=== PATIENT | female | born 1940 | race Caucasian/White ===

== ENCOUNTER 2019-09-08 20:49 | Emergency (ER) | payer MEDICARE, OTHER, SELFPAY ==
[2019-09-08 20:50] VITALS: BP 158/84; PULSE 85; RESP 17; TEMP 36.7; O2SAT 96; BMI 27.1
--- NOTE | 2019-09-08 20:56 | ED_ITS ---
Entered by Poly Galloway, acting as scribe for HPI - General Adult General: Chief complaint: General Medical Stated complaint: possible infection to leg Time Seen by Provider: 09/08/19 20:52 Source: patient Mode of arrival: EMS Limitations: no limitations History of Present Illness: HPI narrative: 79 yo Female presents to ED from [facility] with complaint of possible infection post knee replacement. Pt states that she was sent to the ED by [facility] staff because there was no one at the [facility] that could draw blood cultures. Pt states that she had surgery on her knee on August 29 at [place] in [place]. Pt states that Dr. Amaro did her surgery. Pt states that she woke up with her knee feeling warm and she had a little bit of a fever. Pt states that she has been having issues since the surgery that she can't eat and can't swallow anything but liquids. MD complaint: Possible infection post surgery Onset (ago): hour(s) Location: left and lower extremity Radiation: non-radiation Severity scale (1-10): 7 Quality: constant Pain Consistency: constant Relieving factors: cold therapy Exacerbating factors: none Associated symptoms: Reports decreased appetite and fevers/chills; Deny chest pain, dyspnea, headache(s), nausea, rash, palpitations or vomiting Treatments prior to arrival: none Review of Systems General: Reports: 10 or more systems reviewed and unremarkable except in HPI and below Const: Reports: fever Eyes: Denies: change in vision, blurry vision or blind spots ENMT: Denies: throat pain, painful swallowing, hoarseness or mouth pain Card: Denies: chest pain, palpitations, irregular heart rhythm, edema or swelling of feet/ankles Resp: Denies: shortness of breath, productive cough or non-productive cough GI: Denies: abdominal pain, nausea or vomiting : Denies: flank pain, difficulty urinating, painful urination, urinary frequency or urinary urgency Musc: Reports: extremity pain; Denies: neck pain or back pain Skin/Breast: Denies: rash, itching or redness Neuro: Denies: headache, numbness in extremities or weakness in extremities PFSH ED PFSH: Statuses (acute, chronic, etc) shown below reflect problem list status as previously entered and may not be historically accurate Surgical History (Updated 09/08/19 @ 22:35 by Cliff Lisa) History of knee replacement (Acute) Social History Smoking and tobacco status: never smoked Physical Exam Const: COMMON NORMALS: no apparent distress, average body habitus, oriented x3, no limitations, healthy appearing, alert and well nourished HENMT: COMMON NORMALS: normocephalic, head/scalp atraumatic, hearing grossly normal bilaterally, external ears normal, EAC's normal, TM's normal bilaterally, external nose normal, nasal mucous membranes and turbinates normal, moist oral mucous membranes, oropharynx normal, dentition normal and gingiva normal HEAD & SCALP: normocephalic and atraumatic NOSE: external nose normal and nasal mucous membranes and turbinates normal EXTERNAL EAR: Yes external ears normal EXTERNAL AUDITORY CANAL: EAC's normal TYMPANIC MEMBRANE: TM's normal bilaterally Eye: COMMON NORMALS: PERRL, EOMs intact bilaterally, conjunctivae normal, no scleral icterus, no papilledema, normal visual [place] by confrontation and fundi normal bilaterally CONJUNCTIVA: Yes conjunctivae normal PUPIL: Yes PERRL DIRECT OPHTHALMOSCOPY: Yes no papilledema and Yes fundi normal bilaterally Neck/C-Spine: COMMON NORMALS: full ROM, no lymphadenopathy, supple, no meningeal signs, no JVD, thyroid normal and no carotid bruits THYROID: thyroid normal Chest: COMMONS NORMALS: inspection of chest normal and palpation of chest normal Resp: COMMON NORMALS: normal respiratory effort, no retractions, no use of accessory muscles, clear to auscultation bilaterally and percussion normal AUSCULTATION: clear to auscultation bilaterally PERCUSSION: percussion normal Cardio: COMMON NORMALS: no JVD, regular rate, regular rhythm, S1 normal heart sound, S2 normal heart sound, no gallops, no clicks, no murmurs, no rub and peripheral pulses 2+ throughout RATE: regular rate RHYTHM: regular rhythm HEART SOUNDS: S1 normal and S2 normal PERIPHERAL PULSES: pulses 2+ throughout GI: COMMON NORMALS: normal to inspection, nondistended, normoactive bowel sounds, soft to palpation, non-tender, no hepatosplenomegaly, no masses and no bruits PALPATION: Yes soft and Yes no hepatosplenomegaly : COMMON NORMALS: Yes no CVA tenderness BLADDER/KIDNEY EXAM: Yes no CVA tenderness Back/Pelvis: COMMON NORMALS: no CVA tenderness, thoracic and lumbar spine normal to inspection, no thoracic nor lumbar tenderness, thoraco-lumbar ROM norm al and straight leg raise negative bilaterally Extremity: GENERAL: Yes normal exam except as noted, Yes weight-bearing difficulty and Yes other findings (warmth and swelling to left knee ) LEFT LOWER EXTREMITY: Yes knee joint Left knee: Yes inspection (warmth and swelling) Neuro: COMMON NORMALS: oriented x3 SENSORIUM/ORIENTATION: Yes alert MENINGEAL SIGNS: Yes no meningeal signs Skin: COMMON NORMALS: no rashes or lesions noted, no wounds, skin turgor normal, no jaundice, no petechiae and no mottling GENERAL SKIN EXAM: no rashes or lesions noted and turgor normal Course Vital Signs: Vital signs: Vital Signs Temperature 98.1 F 09/08/19 20:50 Pulse Rate 85 09/08/19 20:50 Respiratory Rate 16 09/08/19 22:16 Blood Pressure 123/69 09/08/19 22:16 Pulse Oximetry 87 L 09/08/19 22:16 [facility] - General Adult Lab Data: Labs: Lab Results 09/08/19 09/08/19 Range/Units 21:55 21:55 WBC 6.1 (4.0-10.0) 10^3/ uL RBC 3.50 L (4.1-5.3) 10^6/u L Hgb 10.1 L (11.5-15.3) g/dL Hct 32.9 L (37.0-47.0) % MCV 94.0 (81-99) fL MCH 28.9 (28.0-34.0) pg MCHC 30.7 (30.0-36.0) g/dL RDW 12.3 (12.1-15.1) % Plt Count 355 (130-400) 10^3/c mm MPV 8.2 (7.4-10.4) fL Neut % (Auto) 59.0 % Lymph % (Auto) 19.9 % [place] % (Auto) 11.7 % Eos % (Auto) 8.1 % Baso % (Auto) 0.5 % Neut # (Auto) 3.6 (1.8-7.7) 10^3/u L Lymph # (Auto) 1.2 (0.8-4.8) 10^3/u L [place] # (Auto) 0.7 (0.2-0.9) 10^3/u L Eos # (Auto) 0.5 (0.0-0.8) 10^3/u L Baso # (Auto) 0.0 (0.0-0.1) 10^3/u L Nucleated RBC % (a uto) 0 % Nucleated RBCs # 0.0 /100WBC Sodium 136 (136-145) mmol/L Potassium 3.9 (3.5-5.1) mmol/L Chloride 98 (98-107) mmol/L Carbon Dioxide 25 (22-29) mmol/L Anion Gap 16.9 (5-19) BUN 16 (8-23) mg/dL Creatinine 1.2 H (0.5-0.9) mg/dL Glucose 98 (74-106) mg/dL Calcium 9.8 (8.8-10.2) mg/Dl Total Bilirubin 0.5 (0.15-1.2) mg/dL AST 29 (0-32) U/L ALT 16 (0-33) U/L Alkaline Phosphata se 65 (35-105) IU/L Total Protein 7.5 (6.6-8.7) g/dL Albumin 3.6 (3.5-5.2) g/dL Globulin 3.9 (1.3-4.6) g/dL Discharge Plan Discharge Patient Disposition: Home, Self-Care Clinical Impression: History of knee replacement Qualifiers: Laterality: left Qualified Code(s): Z96.652 - Presence of left artificial knee joint Condition: Stable Discharge Orders: Discharge Order (Routine); Ordered 09/08/19 Ordered By: lCiff Lisa Referrals: Scar Najera MD [Family Provider] - Discharge Diet: Usual diet Discharge Activity: Limit activity as instructed Patient Instructions: Precautions after Total Joint Replacement Surgery (ED) Activity Restrictions/Additional Instructions: Follow-up results of the blood cultures Follow-up with your primary care provider and/or orthopedist. Coding Level of Care Code ED Senior Process Control Tech for Chg Fwd Exam Problem Focused The documentation recorded by the Laverne baldwin Carmen, accurately reflects the service I personally performed and the decisions made by Maria L pugh Daud Sep 08, 2019:49
[2019-09-08 20:59] VITALS: RESP 18; O2SAT 89
--- NOTE | 2019-09-08 20:59 | PC.NURSE ---
Patient reports that she had surgery on the 6th of this month. Patient states today she noticed her knee getting warm. Patient reports this evening she began to get a fever. Patient states that [facility] to obtain blood cultures so they sent her here.
[2019-09-08 22:14] LABS: Basophils % 0.5 %; Eosinophils # 0.5 10^3/uL (0.0-0.8); Eosinophils % 8.1 %; Hematocrit 32.9 % (37.0-47.0); Hemoglobin 10.1 g/dL (11.5-15.3); Lymphocytes # 1.2 10^3/uL (0.8-4.8); Lymphocytes % 19.9 %; Mean Corpuscular HGB Conc 30.7 g/dL (30.0-36.0); Mean Corpuscular Hemoglobin 28.9 pg (28.0-34.0); Mean Platelet Volume 8.2 fL (7.4-10.4); Monocytes # 0.7 10^3/uL (0.2-0.9); Monocytes % 11.7 %; Neutrophils # 3.6 10^3/uL (1.8-7.7); Nucleated Red Blood Cells % 0 %; Platelet Count 355 10^3/cmm (130-400); Red Cell Distribution Width 12.3 % (12.1-15.1); White Blood Count 6.1 10^3/uL (4.0-10.0)
[2019-09-08 22:16] VITALS: BP 123/69; RESP 16; O2SAT 87
[2019-09-08 22:23] LABS: Alanine Aminotransferase 16 U/L (0-33); Albumin Level 3.6 g/dL (3.5-5.2); Alkaline Phosphatase 65 IU/L (35-105); Anion Gap 16.9 (5-19); Aspartate Amino Transferase 29 U/L (0-32); Blood Urea Nitrogen 16 mg/dL (8-23); Calcium 9.8 mg/Dl (8.8-10.2); Carbon Dioxide 25 mmol/L (22-29); Chloride 98 mmol/L (98-107); Globulin 3.9 g/dL (1.3-4.6); Glucose 98 mg/dL (74-106); Potassium 3.9 mmol/L (3.5-5.1); Sodium 136 mmol/L (136-145); Total Bilirubin 0.5 mg/dL (0.15-1.2); Total Protein 7.5 g/dL (6.6-8.7)
[2019-09-08 23:03] VITALS: BP 134/68; PULSE 89; RESP 15; O2SAT 95
== END 2019-09-08 23:05 | disposition home or self-care (01) ==
PROVIDERS: Emergency Provider Emergency Medicine; Family Provider Internal Medicine
DX: Z96.652 Presence of left artificial knee joint (principal)
CPT/HCPCS: 80053; 85025; 87040; 99281

== ENCOUNTER 2022-04-21 21:52 | Emergency (ER) | payer MEDICARE, OTHER, SELFPAY ==
[2022-04-21 21:55] VITALS: BMI 25.0
--- NOTE | 2022-04-21 21:57 | XRR_ITS ---
PROCEDURE INFORMATION: Exam: XR Chest Exam date and time: 04/21/2022 10:16 PM Age: 81 years old Clinical indication: Angina; Additional info: Cp TECHNIQUE: Imaging protocol: Radiologic exam of the chest. Views: 1 view. COMPARISON: No relevant prior studies available. FINDINGS: Lungs: The lungs are clear. Incidental calcified nodes in the left hilum. Pleural spaces: Unremarkable. No pleural effusion. No pneumothorax. Heart/Mediastinum: Unremarkable. No cardiomegaly. Bones/joints: Unremarkable. XR/XR chest 1V portable [id number] IMPRESSION: No significant findings.
[2022-04-21 21:58] VITALS: BP 161/82; PULSE 66; RESP 16; TEMP 37.1; O2SAT 94
--- NOTE | 2022-04-21 22:00 | ECG_ITS ---
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 Measurements Intervals [place] Rate: 64 P: 19 AL: 163 QRS: -29 QRSD: 92 T: 10 QT: 395 QTc: 408 Interpretive Statements SINUS RHYTHM BORDERLINE LEFT AXIS DEVIATION [QRS AXIS < -20] No previous ECG available for comparison Electronically Signed On 04-22-2022 16:27:16 CDT by Eddie Brown M.D. [email or web address]/[id number] f
[2022-04-21] MEDS: sodium chloride 0.9% 1,000 ML 999 ML IV (22:12)
[2022-04-21 22:13] LABS: Glucose Point of Care 96 mg/dL (70-110)
--- NOTE | 2022-04-21 22:18 | ED_ITS ---
HPI - Weakness General: Chief complaint: Weakness Stated complaint: WEAKNESS Time Seen by Provider: 04/21/22 21:53 Source: patient and EMS Mode of arrival: EMS Limitations: no limitations History of Present Illness: 81-year-old female is here by EMS who states that she had these episodes over the last 3 months where she gets lightheaded and feeling extremely dizzy and weak. States that today she had a episode of diarrhea started to feel weak diaphoretic this happened 1130 and she has not had any improvement. She denies any chest pain denies any headache denies any worsening improving factors. She denies any abdominal pain. Associated symptoms: Denies chest pain, dysuria, easy bruising or headache(s) Review of Systems Const: Reports: fatigue Eyes: Denies: blurry vision or eye discomfort ENMT: Denies: throat pain or dental pain Card: Denies: chest pain Resp: Denies: dyspnea GI: Reports: diarrhea : Denies: dysuria Musc: Denies: neck pain or back pain Skin/Breast: Denies: rash Neuro: Denies: headache(s) Psych: Denies: depression Rei/Lymph: Denies: easy bruising All/Imm: Denies: urticaria PFSH ED PFSH: Surgical History History of knee replacement Social History Smoking and tobacco status: never smoked Physical Exam Const: COMMON NORMALS: no acute distress, patient oriented x3 and healthy appearing HENMT: COMMON NORMALS: normocephalic and atraumatic HEAD & SCALP: normocephalic and atraumatic Eye: COMMON NORMALS: Equal, round and reactive pupils present and EOMs intact bilaterally PUPIL: Yes Equal, round and reactive pupils present Neck/C-Spine: COMMON NORMALS: full ROM and supple Chest: COMMONS NORMALS: normal inspection of the chest and normal palpation of entire chest wall Resp: COMMON NORMALS: normal respiratory effort, No retractions, No use of accessory muscles and clear to auscultation bilaterally AUSCULTATION: clear to auscultation bilaterally Cardio: COMMON NORMALS: regular rate, regular rhythm and No murmurs present (Cardio) RATE: regular rate RHYTHM: regular rhythm GI: COMMON NORMALS: Normal to inspection, nondistended, normoactive bowel sounds present, Soft to palpation, non-tender and no masses PALPATION: Yes Soft to palpation Extremity: COMMON NORMALS: normal to inspection and full ROM Neuro: COMMON NORMALS: patient oriented x3, moves all extremities and no focal motor deficits Psych: COMMON NORMALS: mental status grossly normal, Normal thought process present and cooperative THOUGHT PROCESS: Normal thought process present Skin: COMMON NORMALS: no rashes or lesions noted and no wounds GENERAL SKIN EXAM: no rashes or lesions noted Course Vital Signs: Vital signs: Vital Signs Temperature 98.8 F 04/21/22 21:58 Pulse Rate 73 04/22/22 00:30 Respiratory Rate 17 04/22/22 00:30 Blood Pressure 165/50 04/22/22 00:30 Pulse Oximetry 96 04/21/22 23:30 Oxygen Delivery Me thod 04/21/22 23:28 MDM - Weakness Medical Decision Making Patient presents here with a near syncopal event. Patient's blood work here is normal troponins are negative she feels improved she has a stress test scheduled at [place] on the she is to follow-up then return if worsening she understands agrees to plan. Lab Data : 04/21/22 22:09 04/21/22 22:09 Radiology Impressions Chest X-Ray 04/21/22 21:57 IMPRESSION: No significant findings. Laboratory Results WBC 5.5 10^3/uL (4.0-10.0) 04/21/22 22:09 RBC 4.19 10^6/uL (4.1-5.3) 04/21/22 22:09 Hgb 12.5 g/dL (11.5-15.3) 04/21/22 22:09 Hct 38.1 % (37.0-47.0) 04/21/22 22:09 MCV 90.9 fl (81-99) 04/21/22 22:09 MCH 29.8 pg (28.0-34.0) 04/21/22 22:09 MCHC 32.8 g/dL (30.0-36.0) 04/21/22 22:09 RDW 12.7 % (12.1-15.1) 04/21/22 22:09 Plt Count 206 10^3/cmm (130-400) 04/21/22 22:09 MPV 9.3 fL (7.4-10.4) 04/21/22 22:09 Neut % (Auto) 55.7 % 04/21/22 22:09 Lymph % (Auto) 28.2 % 04/21/22 22:09 [place] % (Auto) 12.1 % 04/21/22 22:09 Eos % (Auto) 3.3 % 04/21/22 22:09 Baso % (Auto) 0.5 % 04/21/22 22:09 Neut # (Auto) 3.05 10^3/uL (1.8-7.7) 04/21/22 22:09 Lymph # (Auto) 1.5 10^3/uL (0.8-4.8) 04/21/22 22:09 [place] # (Auto) 0.7 10^3/uL (0.2-0.9) 04/21/22 22:09 Eos # (Auto) 0.2 10^3/uL (0.0-0.8) 04/21/22 22:09 Baso # (Auto) 0.0 10^3/uL (0.0-0.1) 04/21/22 22:09 Nucleated RBC % (auto) 0 % 04/21/22 22:09 Nucleated RBCs # 0.0 /100WBC 04/21/22 22:09 Sodium 140 mmol/L (136-145) 04/21/22 22:09 Potassium 3.9 mmol/L (3.5-5.1) 04/21/22 22:09 Chloride 105 mmol/L (98-107) 04/21/22 22:09 Carbon Dioxide 26 mmol/L (22-29) 04/21/22 22:09 Anion Gap 12.9 (5-19) 04/21/22 22:09 BUN 15 mg/dL (8-23) 04/21/22 22:09 Creatinine 0.8 mg/dL (0.5-0.9) 04/21/22 22:09 GFR Calculation Not Reportable 04/21/22 22:09 Glucose 91 mg/dL (65-115) 04/21/22 22:09 POC Glucose 96 mg/dL (70-110) 04/21/22 22:09 Calculated Osmolality 290 mOsm/kg (285-295) 04/21/22 22:09 Calcium 9.3 mg/dL (8.5-10.5) 04/21/22 22:09 Total Bilirubin 0.3 mg/dL (0.15-1.2) 04/21/22 22:09 AST 24 U/L (0-32) 04/21/22 22:09 ALT 17 U/L (0-33) 04/21/22 22:09 Alkaline Phosphatase 77 U/L (35-105) 04/21/22 22:09 Troponin T Baseline 9 ng/L (0-10) 04/21/22 22:09 Troponin T 120 Minute 8.85 ng/L (0-10) 04/22/22 00:09 Total Protein 6.8 g/dL (6.6-8.7) 04/21/22 22:09 Albumin 4.2 g/dL (3.5-5.2) 04/21/22 22:09 Globulin 2.6 g/dL (1.3-4.6) 04/21/22 22:09 EKG Data EKG 1: I personally reviewed and interpreted this EKG as follows: EKG interpretation date: 04/21/22 EKG interpretation time: 22:00 Interpretation: nsr hr [address] or t wave abnormalities qrs 92 qtc 404 EKG 2: I personally reviewed and interpreted this EKG as follows: EKG interpretation date: 04/22/22 EKG interpretation time: 00:04 Interpretation: nsr hr [address] or t wave abnormalities qrs 93 [id number] Discharge Plan Discharge Patient Disposition: Home Clinical Impression: Near syncope, Weakness Condition: Stable Discharge Orders: Discharge ED (Routine); Ordered 04/22/22 Ordered By: Caleb Rodriguez Discharge Diet: Advance as tolerated Discharge Activity: Resume usual activity Patient Instructions: Near Syncope (ED) Coding Level of Care Code ED Fuel Cell Binder for Chg Fwd Exam Comprehensive
[2022-04-21 22:31] LABS: Basophils % 0.5 %; Eosinophils # 0.2 10^3/uL (0.0-0.8); Eosinophils % 3.3 %; Hematocrit 38.1 % (37.0-47.0); Hemoglobin 12.5 g/dL (11.5-15.3); Lymphocytes # 1.5 10^3/uL (0.8-4.8); Lymphocytes % 28.2 %; Mean Corpuscular HGB Conc 32.8 g/dL (30.0-36.0); Mean Corpuscular Hemoglobin 29.8 pg (28.0-34.0); Mean Corpuscular Volume 90.9 fl (81-99); Mean Platelet Volume 9.3 fL (7.4-10.4); Monocytes # 0.7 10^3/uL (0.2-0.9); Monocytes % 12.1 %; Neutrophils # 3.05 10^3/uL (1.8-7.7); Neutrophils % 55.7 %; Nucleated Red Blood Cells % 0 %; Platelet Count 206 10^3/cmm (130-400); Red Blood Count 4.19 10^6/uL (4.1-5.3); Red Cell Distribution Width 12.7 % (12.1-15.1); White Blood Count 5.5 10^3/uL (4.0-10.0)
[2022-04-21 22:42] LABS: Troponin(5th) Baseline 9 ng/L (0-10)
[2022-04-21 22:43] LABS: Alanine Aminotransferase 17 U/L (0-33); Albumin Level 4.2 g/dL (3.5-5.2); Alkaline Phosphatase 77 U/L (35-105); Anion Gap 12.9 (5-19); Aspartate Amino Transferase 24 U/L (0-32); Blood Urea Nitrogen 15 mg/dL (8-23); Calcium 9.3 mg/dL (8.5-10.5); Carbon Dioxide 26 mmol/L (22-29); Chloride 105 mmol/L (98-107); Globulin 2.6 g/dL (1.3-4.6); Glucose 91 mg/dL (65-115); Osmolality Calculated 290 mOsm/kg (285-295); Potassium 3.9 mmol/L (3.5-5.1); Sodium 140 mmol/L (136-145); Total Bilirubin 0.3 mg/dL (0.15-1.2); Total Protein 6.8 g/dL (6.6-8.7)
[2022-04-21 23:28] VITALS: BP 151/74; PULSE 56; RESP 15; O2SAT 70
[2022-04-21 23:30] VITALS: BP 151/74; PULSE 64; RESP 21; O2SAT 96
--- NOTE | 2022-04-21 23:57 | ECG_ITS ---
[facility] Test Date: 2022-04-22 Pat Name: Lora Luther Department: Room: Gender: Female Director Orange: : 1940 Requested By: Caleb Rodriguez Order Number: [id number] Benjamin MD: Eddie Brown M.D. Measurements Intervals [place] Rate: 69 P: 61 [place]: 180 QRS: -28 QRSD: 93 T: 15 QT: 355 QTc: 381 Interpretive Statements SINUS RHYTHM BORDERLINE LEFT AXIS DEVIATION [QRS AXIS < -20] NONSPECIFIC T-WAVE ABNORMALITY Compared to ECG 04/21/2022 22:00:04 T-wave abnormality now present Electronically Signed On 04-22-2022 16:32:34 CDT by Eddie Brown M.D. [email or web address]/[id number]
[2022-04-22 00:30] VITALS: BP 165/50; PULSE 73; RESP 17
[2022-04-22 00:34] LABS: Troponin 5 2HR 8.85 ng/L (0-10)
[2022-04-22 00:47] VITALS: BP 165/50; PULSE 73; RESP 17
[2022-04-22 00:55] LABS: Troponin 5 2HR Delta -0.15 ABS# (0-10)
== END 2022-04-22 00:52 | disposition home or self-care (01) ==
PROVIDERS: Emergency Provider Emergency Medicine
DX: R55 Syncope and collapse (principal); R53.1 Weakness
CPT/HCPCS: 36416; 71045; 80053; 82962; 84484; 85025; 93005; 96360; 96361; 99285; J7030

== ENCOUNTER 2022-07-25 11:31 | Outpatient (RCR) | payer MEDICARE, OTHER, SELFPAY | END 2022-08-23 23:59 | disposition home or self-care (01) | LOC: SPT 11:31 | PROVIDERS: PCP Internal Medicine; Visit Provider Orthopaedic Surgery | DX: M47.812 Spondylosis without myelopathy or radiculopathy, cervical region (principal) | CPT/HCPCS: 97110; 97140; 97162; G0283 ==

== ENCOUNTER 2022-07-30 10:40 | Emergency (ER) | payer MEDICARE, OTHER, SELFPAY ==
[2022-07-30] VITALS (8 sets, daily range): BP systolic 140–201; BP diastolic 63–100; PULSE 64–105; RESP 20–25; TEMP 36.8; O2SAT 93–98; BMI 26.5
--- NOTE | 2022-07-30 10:56 | ECG_ITS ---
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 Measurements Intervals [place] Rate: 74 P: 34 MO: 164 QRS: -34 QRSD: 98 T: 31 QT: 441 QTc: 490 Interpretive Statements SINUS RHYTHM WITH OCCASIONAL VENTRICULAR PREMATURE COMPLEXES WITH OCCASIONAL SUPRAVENTRICULAR PREMATURE COMPLEXES LEFT AXIS DEVIATION [QRS AXIS < -30] PROLONGED QT INTERVAL INTERPRETATION BASED ON A DEFAULT AGE OF 40 YEARS Compared to ECG 04/22/2022 00:04:34 Ventricular premature complex(es) now present Prolonged QT interval now present T-wave abnormality no longer present Electronically Signed On 07-30-2022 16:16:21 MEDICAL ADMINISTRATIVE TECHNICIAN by Sohail Valles M.D. [email or web address] [email or web address].[employer]/store/[id number]
[2022-07-30 12:40] LABS: Glucose Point of Care 77 mg/dL (70-110)
--- NOTE | 2022-07-30 12:52 | ED_ITS ---
HPI - Chest Pain General: Chief Complaint: Chest Pain Stated Complaint: Chest pain and high blood pressure Time Seen by Provider: 07/30/22 12:51 Source: patient Mode of arrival: ambulatory History of Present Illness: 82-year-old female presents emergency room complaining of just not feeling right. She states she has an odd sensation in her chest but not really pain. Earlier today she had a palpitations and racing heart rate that has resolved. Her blood pressure is in the 200s systolic with use of physical therapy so debrided her physical therapy regimen today they discharged her from physical therapy and advised her to contact her primary care doctor she went to her car and generally was not feeling well and was too wo rried about how she felt to Dr. so she came to the emergency room. She denies any abdominal pain denies any shortness of breath no recent upper respiratory symptoms no fever sweats chills no dysuria urgency or frequency no vomiting or diarrhea but has had some nausea. MD complaint: chest discomfort Onset (ago): hour(s) Timing of current episode: episodic Prior episodes: Yes Onset: during rest Pain location: other (Vague chest symptoms) Pain radiation: none Quality: heaviness Relieving factors: nothing Exacerbating factors: nothing Associated symptoms: Reports dyspnea, nausea and palpitations; Deny abdominal pain, diaphoresis, fever(s), leg edema, sense of impending doom, syncope or vomiting Review of Systems Const: Denies: fever(s) or diaphoresis ENMT: Denies: throat pain, ear or mastoid pain, nasal discharge or nasal congestion Card: Reports: chest pain and palpitations; Denies: irregular heart rhythm, edema, swelling of feet/ankles or syncope Resp: Reports: dyspnea GI: Reports: nausea; Denies: abdominal pain or vomiting : Denies: flank pain, difficulty voiding, dysuria, urinary frequency or urinary urgency Skin/Breast: Denies: rash or pruritus PFSH ED PFSH: Surgical History History of knee replacement Social History Smoking and tobacco status: never smoked Physical Exam Const: COMMON NORMALS: no acute distress GENERAL APPEARANCE: cooperative and comfortable ORIENTATION/CONSCIOUSNESS: Yes awake, Yes oriented to person, Yes oriented to place and Yes oriented to time HENMT: COMMON NORMALS: normocephalic, atraumatic, hearing grossly normal bilaterally, external ears normal, EAC's normal, TM's normal bilaterally, Normal nasal mucous membranes and turbinates present, moist oral mucous membranes and oropharynx normal HEAD & SCALP: normocephalic and atraumatic NOSE: Normal nasal mucous membranes and turbinates present EXTERNAL EAR: Yes external ears normal EXTERNAL AUDITORY CANAL: EAC's normal TYMPANIC MEMBRANE: TM's normal bilaterally Eye: COMMON NORMALS: Equal, round and reactive pupils present, EOMs intact bilaterally, conjunctivae normal and no scleral icterus CONJUNCTIVA: Yes conjunctivae normal PUPIL: Yes Equal, round and reactive pupils present Neck/C-Spine: COMMON NORMALS: full ROM, no lymphadenopathy, supple and no JVD Resp: COMMON NORMALS: normal respiratory effort, No retractions, No use of accessory muscles and clear to auscultation bilaterally AUSCULTATION: clear to auscultation bilaterally Cardio: COMMON NORMALS: no JVD, regular rate, regular rhythm and No murmurs present (Cardio) RATE: regular rate RHYTHM: regular rhythm GI: COMMON NORMALS: Soft to palpation and No hepatosplenomegaly present AUSCULTATION: Yes normoactive bowel sounds PALPATION: Yes Soft to palpation, No Tenderness to palpation present (GI), No Guarding due to palpation present (GI) and Yes No hepatosplenomegaly present Extremity: COMMON NORMALS: normal to inspection, capillary refill normal, no clubbing, cyanosis or edema, no calf tenderness and no pedal edema Neuro: SENSORIUM/ORIENTATION: Yes oriented to person, Yes oriented to place and Yes oriented to time Skin: COMMON NORMALS: no rashes or lesions noted GENERAL SKIN EXAM: no rashes or lesions noted Course Vital Signs: Vital signs: Vital Signs Temperature 98.2 F 07/30/22 11:09 Pulse Rate 79 07/30/22 16:26 Respiratory Rate 25 H 07/30/22 16:26 Blood Pressure 171/90 07/30/22 16:26 Pulse Oximetry 95 07/30/22 16:26 Oxygen Delivery Me thod 07/30/22 12:31 MDM - Chest Pain Medical Decision Making EKG shows no acute ST changes. Serial troponins negative. We will discharge patient home. Increase amlodipine to 10 mg p.o. daily. Stop atenolol and start Toprol-XL 25 p.o. daily and follow-up with your primary care doctor within the next week. Medical Records I reviewed the patient's medical records. Lab Data I reviewed the patient's lab results. 07/30/22 13:24 07/30/22 15:05 Radiology Impressions Chest X-Ray 07/30/22 12:52 IMPRESSION: No acute or interval change Laboratory Results WBC 5.3 10^3/uL (4.0-10.0) 07/30/22 13:24 RBC 4.87 10^6/uL (4.1-5.3) 07/30/22 13:24 Hgb 14.9 g/dL (11.5-15.3) 07/30/22 13:24 Hct 45.2 % (37.0-47.0) 07/30/22 13:24 MCV 92.8 fl (81-99) 07/30/22 13:24 MCH 30.6 pg (28.0-34.0) 07/30/22 13:24 MCHC 33.0 g/dL (30.0-36.0) 07/30/22 13:24 RDW 12.1 % (12.1-15.1) 07/30/22 13:24 Plt Count 189 10^3/cmm (130-400) 07/30/22 13:24 MPV 10.7 fL (7.4-10.4) H 07/30/22 13:24 Neut % (Auto) 60.2 % 07/30/22 13:24 Lymph % (Auto) 25.8 % 07/30/22 13:24 [place] % (Auto) 10.9 % 07/30/22 13:24 Eos % (Auto) 2.1 % 07/30/22 13:24 Baso % (Auto) 0.6 % 07/30/22 13:24 Neut # (Auto) 3.19 10^3/uL (1.8-7.7) 07/30/22 13:24 Lymph # (Auto) 1.4 10^3/uL (0.8-4.8) 07/30/22 13:24 [place] # (Auto) 0.6 10^3/uL (0.2-0.9) 07/30/22 13:24 Eos # (Auto) 0.1 10^3/uL (0.0-0.8) 07/30/22 13:24 Baso # (Auto) 0.0 10^3/uL (0.0-0.1) 07/30/22 13:24 Nucleated RBC % (auto) 0 % 07/30/22 13:24 Nucleated RBCs # 0.0 /100WBC 07/30/22 13:24 Sodium 141 mmol/L (136-145) 07/30/22 15:05 Potassium 3.9 mmol/L (3.5-5.1) 07/30/22 15:05 Chloride 106 mmol/L (98-107) 07/30/22 15:05 Carbon Dioxide 23 mmol/L (22-29) 07/30/22 15:05 Anion Gap 15.9 (5-19) 07/30/22 15:05 BUN 12 mg/dL (8-23) 07/30/22 15:05 Creatinine 0.8 mg/dL (0.5-0.9) 07/30/22 15:05 GFR Calculation Not Reportable 07/30/22 15:05 Glucose 108 mg/dL (65-115) 07/30/22 15:05 POC Glucose 77 mg/dL (70-110) 07/30/22 12:36 Calculated Osmolality 292 mOsm/kg (285-295) 07/30/22 15:05 Calcium 9.3 mg/dL (8.5-10.5) 07/30/22 15:05 Total Bilirubin 0.5 mg/dL (0.15-1.2) 07/30/22 15:05 AST 21 U/L (0-32) 07/30/22 15:05 ALT 14 U/L (0-33) 07/30/22 15:05 Alkaline Phosphatase 71 U/L (35-105) 07/30/22 15:05 Troponin T Baseline 11 ng/L (0-10) H 07/30/22 13:24 Troponin T 120 Minute 10.41 ng/L (0-10) H 07/30/22 15:05 Delta Troponin T -0.59 ABS# (0-10) L 07/30/22 15:05 Total Protein 6.7 g/dL (6.6-8.7) 07/30/22 15:05 Albumin 3.7 g/dL (3.5-5.2) 07/30/22 15:05 Globulin 3.0 g/dL (1.3-4.6) 07/30/22 15:05 Discharge Plan Discharge Patient Disposition: Home Clinical Impression: Hypertension Condition: Stable Prescriptions: New Toprol XL 25 mg tablet extended release 24 hr 25 mg PO DAILY Qty: 30 0RF amlodipine 10 mg tablet 10 mg PO DAILY Qty: 30 0RF Discontinued atenolol 25 mg tablet 12.5 mg PO DAILY PRN (Reason: heart rate below 55) amlodipine 2.5 mg tablet 2.5 mg PO DAILY PRN (Reason: blood pressure over 160) No Action atorvastatin 40 mg tablet 40 mg PO DAILY oxybutynin chloride 15 mg tablet extended release 24hr 15 mg PO DAILY lisinopril 20 mg tablet 20 mg PO BID levothyroxine 100 mcg tablet 100 mcg PO DAILY clopidogrel 75 mg tablet 75 mg PO DAILY Aspir-81 81 mg Tablet,Delayed Release (Dr/Ec) 81 mg PO DAILY nitroglycerin 0.4 mg Tablet, Sublingual 0.4 mg SUBLINGUAL Q5M PRN (Reason: Chest Pain) Rx Instructions: do not exceed 3 doses per episode Discharge Orders: Discharge ED (Routine); Ordered 07/30/22 Ordered By: Fran Rollins Referrals: Scar Najera MD [Primary Care Provider] - Discharge Diet: Usual diet Discharge Activity: Increase activity as tolerated Patient Instructions: Opioid Safety, Pain Management Activity Restrictions/Additional Instructions: You were seen today for elevated blood pressure. After several medications your blood pressure did improve significantly. Would like you to increase your amlodipine to 10 mg and take it daily. Stop the atenolol and instead take Toprol-XL 25 mg daily. Continue your lisinopril follow-up with your primary care doctor within the next week in their office to reevaluate your blood press ures. It would be helpful for you to keep a blood pressure log at home check your blood pressure once or twice a day and bring that to your doctor's appointment. Coding Level of Care Code ED Biomedical Equipment Specialist for Bernardo Arce
--- NOTE | 2022-07-30 12:52 | XR_ITS ---
WS: [id number] EXAMINATION: XR chest 1V portable [id number] REASON FOR EXAM: Chest pain COMPARISON: 04/21/2022. ORDER DATE: 07/30/2022 12:54 PM TECHNIQUE: A single, portable frontal chest x-ray was obtained. X-RAY FINDINGS: The lungs are clear. Pleural spaces are clear. No pleural effusions or pneumothorax. Mild cardiomegaly. No evidence for pulmonary edema. Soft tissue and osseous structures are unremarkable. No tubes or lines are present. XR/XR chest 1V portable [id number] IMPRESSION: No acute or interval change
--- NOTE | 2022-07-30 12:59 | PC.NURSE ---
PT PLACED ON CONTINUOUS NIBP, SPO2, AND CM
[2022-07-30] MEDS: enalaprilat 1.25 mg/mL Inj IVP (13:17)
[2022-07-30] MEDS: hyDRALAzine 20 mg/mL INJ 1 mL IVP (13:17)
[2022-07-30] MEDS: aspirin 81 mg Chew Tablet 324 MG PO (13:17)
[2022-07-30 13:53] LABS: Troponin(5th) Baseline 11 ng/L (0-10)
[2022-07-30 14:15] LABS: Basophils % 0.6 %; Eosinophils # 0.1 10^3/uL (0.0-0.8); Eosinophils % 2.1 %; Hematocrit 45.2 % (37.0-47.0); Hemoglobin 14.9 g/dL (11.5-15.3); Lymphocytes # 1.4 10^3/uL (0.8-4.8); Lymphocytes % 25.8 %; Mean Corpuscular Hemoglobin 30.6 pg (28.0-34.0); Mean Corpuscular Volume 92.8 fl (81-99); Mean Platelet Volume 10.7 fL (7.4-10.4); Monocytes # 0.6 10^3/uL (0.2-0.9); Monocytes % 10.9 %; Neutrophils # 3.19 10^3/uL (1.8-7.7); Neutrophils % 60.2 %; Nucleated Red Blood Cells % 0 %; Platelet Count 189 10^3/cmm (130-400); Red Blood Count 4.87 10^6/uL (4.1-5.3); Red Cell Distribution Width 12.1 % (12.1-15.1); White Blood Count 5.3 10^3/uL (4.0-10.0)
[2022-07-30] MEDS: sodium chloride 0.9% 500 ML 999 ML IV (14:36)
[2022-07-30] MEDS: ondansetron 2 mg/ML SDV 2 mL 4 MG IVP (14:56)
--- NOTE | 2022-07-30 15:02 | ECG_ITS ---
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 Measurements Intervals [place] Rate: 78 P: 51 OK: 172 QRS: -2 QRSD: 97 T: 31 QT: 413 QTc: 473 Interpretive Statements SINUS RHYTHM WITH FREQUENT SUPRAVENTRICULAR PREMATURE COMPLEXES NONSPECIFIC T-WAVE ABNORMALITY ABNORMAL RHYTHM ECG Compared to ECG 07/30/2022 10:56:19 T-wave abnormality now present Ventricular premature complex(es) no longer present Left-axis deviation no longer present Prolonged QT interval no longer present Electronically Signed On 07-30-2022 16:19:09 CUPOLA LINER by Sohail Valles M.D. [email or web address]
[2022-07-30 15:36] LABS: Troponin 5 2HR 10.41 ng/L (0-10); Troponin 5 2HR Delta -0.59 ABS# (0-10)
[2022-07-30 15:39] LABS: Alanine Aminotransferase 14 U/L (0-33); Albumin Level 3.7 g/dL (3.5-5.2); Alkaline Phosphatase 71 U/L (35-105); Blood Urea Nitrogen 12 mg/dL (8-23); Calcium 9.3 mg/dL (8.5-10.5); Carbon Dioxide 23 mmol/L (22-29); Chloride 106 mmol/L (98-107); Creatinine Clr Calc Pharmacy 50.2035; Glucose 108 mg/dL (65-115); Osmolality Calculated 292 mOsm/kg (285-295); Sodium 141 mmol/L (136-145); Total Bilirubin 0.5 mg/dL (0.15-1.2); Total Protein 6.7 g/dL (6.6-8.7)
[2022-07-30 16:38] LABS: Anion Gap 15.9 (5-19); Aspartate Amino Transferase 21 U/L (0-32); Potassium 3.9 mmol/L (3.5-5.1)
== END 2022-07-30 16:25 | disposition home or self-care (01) ==
PROVIDERS: Emergency Provider Family Medicine; PCP Internal Medicine
DX: I10 Essential (primary) hypertension (principal); Z79.82 Long term (current) use of aspirin; Z79.02 Long term (current) use of antithrombotics/antiplatelets
CPT/HCPCS: 36416; 71045; 80053; 82962; 84484; 85025; 93005; 96361; 96374; 96375; 99285; J0360; J2405; J3490; J7040

== ENCOUNTER 2022-12-12 06:00 | Outpatient (RCR) | payer MEDICARE, OTHER, SELFPAY | END 2022-12-21 23:59 | disposition home or self-care (01) | LOC: SPT 06:00 | PROVIDERS: Visit Provider Nurse Practitioner Family | DX: Z48.811 Encounter for surgical aftercare following surgery on the nervous system (principal) | CPT/HCPCS: 97110; 97162 ==

== ENCOUNTER 2022-12-22 06:00 | Outpatient (RCR) | payer MEDICARE, OTHER, SELFPAY | END 2023-01-21 23:59 | disposition home or self-care (01) | LOC: SPT 06:00 | PROVIDERS: Visit Provider Nurse Practitioner Family | DX: Z47.89 Encounter for other orthopedic aftercare (principal) | CPT/HCPCS: 97110 ==

== ENCOUNTER 2023-12-29 10:57 | Outpatient (CLI) | payer MEDICARE, OTHER, SELFPAY ==
--- NOTE | 2023-12-29 11:05 | XRR_ITS ---
PROCEDURE INFORMATION: Exam: XR Cervical Spine Exam date and time: 12/29/2023 11:09 AM Age: 83 years old Clinical indication: Neck pain; Prior surgery; Surgery date: 6+ months; Surgery type: C3-c6 fusion 08/2022; Patient HX: Pain in neck from surgery in August 2022; Additional info: Arthrodesis status TECHNIQUE: Imaging protocol: Radiologic exam of the cervical spine. Views: 2 or 3 views. COMPARISON: CR XR chest 1V portable [id number] 07/30/2022 12:58 PM FINDINGS: Tubes, catheters and devices: Partially visualized dual lead cardiac device with left chest generator. Bones/joints: No acute fracture. Overall straightening of the natural cervical lordosis without subluxation or dislocation. Posterior instrumented fusion from C3-6. Intact hardware without evidence of hardware complication. Moderate multilevel intervertebral disc space narrowing with associated osteophytosis from C4-7. Multilevel facet arthrosis greatest at C3-C4 on the right. Soft tissues: Unremarkable. XR/XR cervical spine 3V* [id number] IMPRESSION: 1. C3-6 posterior instrumented fusion without evidence of hardware complication or acute bony abnormality. 2. Overall moderate multilevel, multifactorial cervical spine degenerative change.
== END 2023-12-29 10:58 | disposition home or self-care (01) ==
LOC: RAD 11:00
PROVIDERS: PCP Internal Medicine; Visit Provider Nurse Practitioner Family
DX: Z98.1 Arthrodesis status (principal); M50.31 Other cervical disc degeneration, high cervical region
CPT/HCPCS: 72040

== ENCOUNTER 2024-02-22 16:05 | Outpatient (CLI) | payer MEDICARE, OTHER, SELFPAY ==
--- NOTE | 2024-02-22 16:23 | CTR_ITS ---
PROCEDURE INFORMATION: Exam: CT Cervical Spine Without Contrast Exam date and time: 02/22/2024 4:40 PM Age: 83 years old Clinical indication: Condition or disease; Fusion; Cervical region; Prior surgery; Surgery date: 6+ months; Surgery type: Thyroid and neck; Patient HX: Chronic cervical radiculopathy TECHNIQUE: Imaging protocol: Computed tomography of the cervical spine without contrast. Radiation optimization: All CT scans at this facility use at least one of these dose optimization techniques: automated exposure control; mA and/or kV adjustment per patient size (includes targeted exams where dose is matched to clinical indication); or iterative reconstruction. COMPARISON: CR XR cervical spine 3V* [id number] 12/29/2023 11:09 AM RADIATION DOSE METRICS: Total DLP (mGy-cm): 156.7 FINDINGS: Bones: Straightened cervical curvature. No listhesis. Advanced multilevel facet arthropathy with suggestion of prior osseous graft diffuse in the facets. Mild height loss of C5 and C6 vertebra is likely a chronic finding. Large anterior endplate osteophytosis at C5-C6 and C6-C7 and C7-T1. Mild multilevel uncovertebral spurring throughout the cervical spine. Features of prior extensive laminectomy and posterior fusion at C3-C6. No evidence of hardware failure or loosening. Moderate to high-grade foraminal stenosis at C3-C4, left greater than right. Mild left C4-C5 foraminal stenosis. Mild bilateral C5-C6 foraminal stenosis. Moderate right C6-C7 and C7-T1 foraminal stenosis. Lungs: Lung apices are normal. Vasculature: 3 mm nodule in the left apex (series 4, image 82). Moderate atherosclerotic calcification of the bilateral carotid bifurcations/proximal internal carotid arteries. Soft tissues: Unremarkable. CT/CT cervical spin wo con* [id number] IMPRESSION: 1. No acute fracture or other aggressive osseous abnormality. No osseous erosion. 2. Moderate to high-grade foraminal stenosis of the right C3-C4 foramen. Moderate right C6-C7 and C7-T1 foraminal stenosis. 3. No evidence of hardware failure or loosening status post extensive laminectomy and posterior fusion surgery. 4. A 3 mm left apical nodule is noted, follow-up CT in 1 year may be considered according to the Fleischner guidelines if there are underlying risk factors.
== END 2024-02-22 16:06 | disposition home or self-care (01) ==
LOC: RAD 16:07
PROVIDERS: PCP Internal Medicine; Visit Provider Nurse Practitioner Family
DX: M54.12 Radiculopathy, cervical region (principal); Z98.1 Arthrodesis status; M48.03 Spinal stenosis, cervicothoracic region; R91.1 Solitary pulmonary nodule; M25.78 Osteophyte, vertebrae
CPT/HCPCS: 72125